=== PATIENT | female | born 1985 | race Caucasian/White ===

== ENCOUNTER 2017-11-14 17:24 | Emergency (ER) | payer OTHER ==
--- NOTE | 2017-11-14 17:44 | PDOC ---
Rapid Medical Evaluation Time Seen by Provider: 11/14/17 17:40 Medical Evaluation: Allergies Allergy/AdvReac Type Severity Reaction Status Date / Time No Known Allergies Allergy Verified 11/10/15 17:06 11/14/17 17:40 Pt presents to the ED: 24 weeks , Dr. ramesh felix, went to the bathroom and had gush of fluid, feels ball between legs Pt on brief exam: vss Pt ordered for : go directly to l &D Pt to proceed to the ED
[2017-11-14 17:50] VITALS: TEMP 98.4; BMI 23.1
[2017-11-14 18:08] VITALS: BP 108/68; PULSE 87
== END 2017-11-14 18:40 | disposition home or self-care (01) ==
LOC: JER 17:24
DX: O26.892 Other specified pregnancy related conditions, second trimester (principal); N89.8 Other specified noninflammatory disorders of vagina; Z3A.24 24 weeks gestation of pregnancy
CPT/HCPCS: 99281-25

== ENCOUNTER 2018-03-11 17:02 | Inpatient (IN) | payer BC ==
[~2018-03-11 17:02] MED LIST: ELECTROLYTE-148 SOLN 500 ML IV SCH
[2018-03-11] MEDS ORDERED: ELECTROLYTE-148 SOLN 500 ML IV SCH (17:45)
[2018-03-11 17:49] VITALS: BMI 26.9
[2018-03-11] MEDS ORDERED: CITRIC ACID/SODIUM CITRATE 30 ML UNIT-DOSE CUP PO ONE (17:59)
--- NOTE | 2018-03-11 18:05 | HP ---
Past Medical History - Primary Care Physician PCP:: Nehemias Caicedo - Admission Chief Complaint: 38 weeks, labor, previous c/s , request of repeat c/s History of Present Illness: 32 yo f edc by [facility] 03/18/18 38 weeks, c/o of contraction since 3 pm today, no rom, has bloody show , cx closed 75 vx -3 mi, fhr cat i , regular contraction, disussed , declined , risks of c/s discussed History Source: Patient Limitations to Obtaining History: Language Barrier - Past Medical History ...: 3 ...Para: 1 ...Term: 1 ...: 0 ...Spon : 0 ...Induced : 1 ...Multiple Gestation: 0 ...EDC by [facility]: 03/13/18 Infectious Disease: Yes: STD's (hx of HSV, 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) - Past Surgical History Past Surgical History: Yes: Hx Myomectomy: No Hx Transabdominal Cerclage: No - Smoking History Smoking history: Never smoked Have you smoked in the past 12 months: No - Alcohol/Substance Use Hx Alcohol Use: No - Social History Usual Living Arrangement: Yes: With Spouse History of Recent Travel: No Home Medications - Allergies Allergies/Adverse Reactions: Allergies Allergy/AdvReac Type Severity Reaction Status Date / Time No Known Allergies Allergy Verified 03/11/18 17:11 - Home Medications Home Medications: Ambulatory Orders Vit 108/Iron/Folic AC [ One Tablet] 1 tab PO DAILY 11/14/17 Valacyclovir HCl [Valtrex] 500 mg PO DAILY 03/11/18 Review of Systems - Review of Systems Constitutional: reports: No Symptoms Eyes: reports: No Symptoms HENT: reports: No Symptoms Neck: reports: No Symptoms Cardiovascular: reports: No Symptoms Genitourinary: reports: No Symptoms Breasts: reports: No Symptoms Reported Integumentary: reports: No Symptoms Neurological: reports: No Symptoms Endocrine: reports: No Symptoms Psychiatric: reports: No Symptoms Physical Exam - Maternity Vital Signs: Vital Signs Temperature 98.6 F 03/11/18 17:38 Pulse Rate 98 H 03/11/18 17:38 Respiratory Rate 20 03/11/18 17:38 Blood Pressure 128/71 03/11/18 17:38 O2 Sat by Pulse Oximetry (%) Constitutional: Yes: Well Nourished, No Distress, Calm Eyes: Yes: WNL, Conjunctiva Clear, EOM Intact HENT: Yes: WNL, Atraumatic, Normocephalic Neck: Yes: WNL, Supple, Trachea Midline Cardiovascular: Yes: WNL, Regular Rate and Rhythm Breast(s): Yes: WNL - Abdominal Exam/OB Regularity: Regular Intensity: Mod/Strong Monitor Mode: External Heart Rate Location: [facility] Category: I Accelerations: Uniform Decelerations: None - Vaginal Exam/OB Vaginal Bleediing: Bloody Show Speculum Exam: No Dilatation (cm): closed Effacement (%): 75 Amniotic Membrane Status: Intact Presentation: Vertex/Position Station: -2 - Physical Exam Musculoskeletal: Yes: WNL Extremities: Yes: WNL Edema: Yes Edema: LLE: Trace, RLE: Trace Deep Tendon Reflex Grade: Normal +2 Psychiatric: Yes: WNL Hemorrhage Risk Assessment - Risk Factors Medium Risk Factors: Yes: None High Risk Factors: Yes: None Risk Score: 1 Risk Level: Medium Risk Problem List - Problems (1) with 38 completed weeks gestation Code(s): Z3A.38 - 38 WEEKS GESTATION OF (2) Previous section complicating Code(s): O34.219 - MATERNAL CARE FOR UNSP TYPE SCAR FROM PREVIOUS DEL (3) First stage of labor established Code(s): VMV9798 - Assessment/Plan plan repeat c/s, rba discussed
[2018-03-11 18:11] LABS: BASO % 0.4 % (0-2.0); EOS % 0.4 % (0-4.5); HEMOGLOBIN 10.4 GM/dL (10.7-15.3); LYMPH % 13.9 % (8-40); MCH 26.9 pg (25.7-33.7); MCHC 32.6 g/dl (32.0-36.0); MEAN CELL VOLUME 82.5 fl (80-96); MEAN PLT VOLUME 10.2 fl (7.5-11.1); MONO % 8.8 % (3.8-10.2); NEUT % 76.5 % (42.8-82.8); PLATELET COUNT 201 K/MM3 (134-434); RBC 3.87 M/mm3 (3.60-5.2); RDW 15.5 % (11.6-15.6)
[2018-03-11 18:23] LABS: INR 0.88 (0.82-1.09)
[2018-03-11 18:26] LABS: ACTIVATED PTT 23.4 SECONDS (26.9-34.4)
[2018-03-11 18:36] LABS: ANION GAP 9 (8-16); BLOOD UREA NITROGEN 10 mg/dL (7-18); CALCIUM 8.5 mg/dL (8.5-10.1); CHLORIDE 106 mmol/L (98-107); CO2 24 mmol/L (21-32); CREATININE 0.5 mg/dL (0.55-1.02); GLUCOSE,RANDOM 78 mg/dL (74-106); POTASSIUM 3.8 mmol/L (3.5-5.1); SODIUM 139 mmol/L (136-145)
[2018-03-11] MEDS ORDERED: ELECTROLYTE-148 SOLN 1,000 ML IV SCH (19:45)
[2018-03-11] MEDS ORDERED: ONDANSETRON 4 MG/2 ML VIAL IVPUSH PRN (19:52)
[2018-03-11] MEDS ORDERED: IBUPROFEN 800 MG/8 ML IJ IVPB PRN ×2 (19:53→20:03)
[2018-03-11] MEDS ORDERED: morphine SULFATE/Preservative Free 0.5 MG/ML (1cc Syringe) ONE (20:00)
[2018-03-11] MEDS ORDERED: morphine SULFATE/Preservative Free 0.5 MG/ML (1cc Syringe) EP ONE (20:00)
[2018-03-11] MEDS ORDERED: BUPIVACAINE 0.75% IN DEXTROSE/PF 2ML AMPULE NR ONE (20:00)
[2018-03-11] MEDS ORDERED: ceFAZolin SODIUM 1 GM VIAL ONE (20:01)
[2018-03-11] MEDS ORDERED: BENZOCAINE 20% 57 GM BOTTLE TP PRN (20:03)
[2018-03-11] MEDS ORDERED: BENZOCAINE 28 GM HEMORRHOIDAL OINTMENT PR PRN (20:03)
[2018-03-11] MEDS ORDERED: diphenhydrAMINE HCL 25 MG CAPSULE (FP) PO PRN (20:03)
[2018-03-11] MEDS ORDERED: METHYLERGONOVINE MALEATE 0.2 MG/1 ML AMP IM PRN (20:03)
[2018-03-11] MEDS ORDERED: oxyCODONE HCL 5 MG TABLET PO PRN (20:03)
[2018-03-11] MEDS ORDERED: WITCH HAZEL 50% (TUCKS) 40 PAD/JAR PAD TP PRN (20:03)
[2018-03-11] MEDS ORDERED: OXYTOCIN 20 UNITS in 0.9% NS 20 UNIT/1,000 ML INFUS.BAG IV SCH (20:15)
[2018-03-11] MEDS ORDERED: DEXTROSE 5%-LACTATED RINGERS 1,000 ML IV SCH (20:15)
[2018-03-11] MEDS ORDERED: OXYTOCIN 10 UNITS/ML VIAL ONE (20:24)
[2018-03-11] MEDS ORDERED: OXYTOCIN 20 UNITS in 0.9% NS 20 UNIT/1,000 ML INFUS.BAG IV ONE (21:54)
[2018-03-12] MEDS ORDERED: CEFAZOLIN 1 GM in DEXTROSE 5%-WATER - 50 ML IVPB SCH (02:00)
[2018-03-12] MEDS: CEFAZOLIN 1 GM/D5W 1 GM/50 ML BAG IVPB SCH ×3 (02:10→17:03)
[2018-03-12] MEDS: OXYTOCIN 20 UNITS in 0.9% NS 20 UNIT/1,000 ML INFUS.BAG IV SCH ×2 (05:57→14:00)
--- NOTE | 2018-03-12 08:11 | PN ---
Progress Note (short form) - Note Progress Note: Anesthesia post op/pain S:alert aND AWAKE comfortable O: Vital Signs Temperature 98.7 F 03/12/18 06:00 Pulse Rate 86 03/12/18 06:00 Respiratory Rate 18 03/12/18 06:00 Blood Pressure 104/58 03/12/18 06:00 O2 Sat by Pulse Oximetry (%) 100 03/11/18 21:45 CBC, BMP 03/11/18 17:58 A/P: Current Active Problems Current Active Problems First stage of labor established (Acute) with 38 completed weeks gestation (Acute) Previous section complicating (Acute) s/p c section Doing well post op Bonifacio Glynn MD
[2018-03-12 08:19] LABS: BASO % 0.2 % (0-2.0); EOS % 0.1 % (0-4.5); HEMATOCRIT 29.2 % (32.4-45.2); HEMOGLOBIN 9.5 GM/dL (10.7-15.3); LYMPH % 9.1 % (8-40); MCH 26.9 pg (25.7-33.7); MCHC 32.7 g/dl (32.0-36.0); MEAN CELL VOLUME 82.2 fl (80-96); MONO % 6.6 % (3.8-10.2); PLATELET COUNT 167 K/MM3 (134-434); RBC 3.55 M/mm3 (3.60-5.2); RDW 15.3 % (11.6-15.6); WHITE BLOOD COUNT 18.7 K/mm3 (4.0-10.0)
[2018-03-12] MEDS: ENOXAPARIN NA (PORCINE) 40 MG/0.4 ML DISP.SYRIN SQ SCH (09:14)
[2018-03-12] MEDS: oxyCODONE HCL 5 MG TABLET PO PRN ×2 (15:12→22:07)
[2018-03-12] MEDS: IBUPROFEN 600 MG TABLET (FP) PO PRN ×2 (15:13→22:07)
[2018-03-12] MEDS: SIMETHICONE 80 MG TAB.CHEW (FP) PO PRN ×2 (15:14→22:07)
--- NOTE | 2018-03-12 17:07 | PN ---
Progress Note (short form) - Note Progress Note: pod 1, s/p c/s doing well CBC, BMP 03/12/18 07:30 03/11/18 17:58 abdomen soft, no distension, no cva incision dry, clean no calf tenderness plan ambulate , advnce diet pain management Problem List - Problems (1) with 38 completed weeks gestation Code(s): Z3A.38 - 38 WEEKS GESTATION OF (2) Previous section complicating Code(s): O34.219 - MATERNAL CARE FOR UNSP TYPE SCAR FROM PREVIOUS DEL (3) First stage of labor established Code(s): UCE0375 -
[2018-03-12] MEDS ORDERED: BISACODYL 10 MG SUPP.RECT RC PRN (20:03)
[2018-03-12] MEDS: SENNOSIDES/DOCUSATE COMBO (SENNA PLUS) TABLET (UD) PO PRN (20:56)
[2018-03-13] MEDS: SIMETHICONE 80 MG TAB.CHEW (FP) PO PRN ×3 (06:28→18:50)
[2018-03-13] MEDS: IBUPROFEN 600 MG TABLET (FP) PO PRN ×3 (06:28→18:49)
[2018-03-13] MEDS: oxyCODONE HCL 5 MG TABLET PO PRN ×3 (06:28→18:49)
[2018-03-13] MEDS: ENOXAPARIN NA (PORCINE) 40 MG/0.4 ML DISP.SYRIN SQ SCH (09:05)
--- NOTE | 2018-03-13 09:58 | PN ---
Post Progress Note - Subjective Subjective: 32 yo Para 2 status post delivery, seen and evaluated. Doing well. Post Day: 2 Type of Delivery: Repeat C/S Vital Signs: Vital Signs Temperature 97.9 F 03/13/18 07:30 Pulse Rate 79 03/13/18 07:30 Respiratory Rate 20 03/13/18 07:30 Blood Pressure 106/60 03/13/18 07:30 O2 Sat by Pulse Oximetry (%) 100 03/11/18 21:45 Breast Exam: Yes: Soft Uterus: Yes: Fundus Firm Incision: Yes: [place] intact Abdomen/GI: Yes: Abdomen soft, Tolerating PO Lochia: Yes: Rubra Lochia, amount: Small Extremities: Yes: Calves non-tender Activity: Ambulating - Labs Labs: CBC WBC 18.7 K/mm3 (4.0-10.0) H D 03/12/18 07:30 RBC 3.55 M/mm3 (3.60-5.2) L 03/12/18 07:30 Hgb 9.5 GM/dL (10.7-15.3) L 03/12/18 07:30 Hct 29.2 % (32.4-45.2) L 03/12/18 07:30 MCV 82.2 fl (80-96) 03/12/18 07:30 MCH 26.9 pg (25.7-33.7) 03/12/18 07:30 MCHC 32.7 g/dl (32.0-36.0) 03/12/18 07:30 RDW 15.3 % (11.6-15.6) 03/12/18 07:30 Plt Count 167 K/MM3 (134-434) 03/12/18 07:30 MPV 10.0 fl (7.5-11.1) 03/12/18 07:30 Neutrophils % 84.0 % (42.8-82.8) H 03/12/18 07:30 Lymphocytes % 9.1 % (8-40) D 03/12/18 07:30 Monocytes % 6.6 % (3.8-10.2) 03/12/18 07:30 Eosinophils % 0.1 % (0-4.5) 03/12/18 07:30 Basophils % 0.2 % (0-2.0) 03/12/18 07:30 Problem List - Problems (1) Status post repeat low transverse section Code(s): Z98.891 - HISTORY OF UTERINE SCAR FROM PREVIOUS SURGERY Assessment/Plan Status post repeat Low Transverse Stable Ambulation Analgesia as needed Continue routine post op care
--- NOTE | 2018-03-13 12:41 | OP ---
DATE OF OPERATION: 03/11/2018 PREOPERATIVE DIAGNOSIS: 38 weeks, previous section, labor, request repeat section. POSTOPERATIVE DIAGNOSIS: 38 weeks, previous section, labor, request repeat section. PROCEDURE: Repeat low segment transverse section. SURGEON: Nehemias Caicedo MD GAS [employer]URBINE ASSEMBLER: SONALI Mejia ANESTHESIA: Spinal. ANESTHESIOLOGIST: Dr. Ovalle ESTIMATED BLOOD LOSS: 500 mL. DESCRIPTION OF PROCEDURE: The patient was taken to the operating room under adequate spinal anesthesia. Abdomen and perineum was prepped and draped. Pfannenstiel abdominal skin incision was made. Abdominal wall was cut layer by layer until the peritoneum was exposed and incised. Upon entering the abdominal cavity, lower uterine segment was identified, and uterovesical fold of peritoneum established. Bladder was pushed down. A low transverse uterine incision was made. Amniotic sac was entered. Clear fluid. Head delivered from right occiput transverse position. Nasopharynx was suctioned. Live baby was delivered without any difficulty. Placenta was delivered manually. Uterine cavity was cleaned of all remaining tissue. Uterine incision was closed in 2 layers, the first layer with 0 Biosyn continuous suture, the second layer with 0 Biosyn imbricating the first layer. Bladder flap was closed with 0 Biosyn continuous suture. Both tubes and ovaries were checked and normal. No active bleeding was seen. All of the lap pad, sponge, and instrument counts were correct. Peritoneum was closed with 0 Biosyn continuous suture. Muscles were brought together with interrupted sutures of 0 Biosyn. Fascia was closed with 0 Biosyn continuous suture, subcutaneous fat interrupted suture of 0 Biosyn, and the skin was closed with martita. The patient tolerated the procedure well and left the OR in good condition. Nayan [id number]
[2018-03-13 21:00] VITALS: TEMP 98
[2018-03-14] MEDS: SIMETHICONE 80 MG TAB.CHEW (FP) PO PRN ×2 (00:25→07:56)
[2018-03-14] MEDS: SENNOSIDES/DOCUSATE COMBO (SENNA PLUS) TABLET (UD) PO PRN (00:25)
[2018-03-14] MEDS: IBUPROFEN 600 MG TABLET (FP) PO PRN (07:56)
[2018-03-14 08:59] LABS: BASO % 0.4 % (0-2.0); EOS % 2.4 % (0-4.5); HEMATOCRIT 26.7 % (32.4-45.2); HEMOGLOBIN 8.7 GM/dL (10.7-15.3); LYMPH % 18.4 % (8-40); MCHC 32.6 g/dl (32.0-36.0); MEAN CELL VOLUME 82.8 fl (80-96); MEAN PLT VOLUME 9.6 fl (7.5-11.1); MONO % 8.4 % (3.8-10.2); NEUT % 70.4 % (42.8-82.8); PLATELET COUNT 199 K/MM3 (134-434); RBC 3.22 M/mm3 (3.60-5.2); RDW 15.7 % (11.6-15.6); WHITE BLOOD COUNT 9.2 K/mm3 (4.0-10.0)
[2018-03-14 09:07] VITALS: BP 111/67; PULSE 74
[2018-03-14] MEDS: ENOXAPARIN NA (PORCINE) 40 MG/0.4 ML DISP.SYRIN SQ SCH (10:10)
--- NOTE | 2018-03-14 11:25 | PN ---
Post Progress Note - Subjective Subjective: no c/o dizziness no c/o pain pt requests for discharge today Post Day: 3 Type of Delivery: Repeat C/S Vital Signs: Vital Signs Temperature 98.0 F 03/14/18 09:07 Pulse Rate 74 03/14/18 09:07 Respiratory Rate 20 03/14/18 09:07 Blood Pressure 111/67 03/14/18 09:07 O2 Sat by Pulse Oximetry (%) 100 03/11/18 21:45 Breast Exam: Yes: Soft, Other (both breast & bottle feeding ). No: Engorged Uterus: Yes: Fundus Firm, Fundus below umbilicus, Non-tender Incision: Yes: [place] intact. No: Redness, Oozing Abdomen/GI: Yes: Abdomen soft, Passing flatus, Tolerating PO (diet ). No: Abdominal Distention, Tender Lochia: Yes: Rubra Lochia, amount: Small Extremities: Yes: Calves non-tender Perineum: Yes: Intact Activity: Ambulating - Labs Labs: CBC WBC 9.2 K/mm3 (4.0-10.0) D 03/14/18 08:00 RBC 3.22 M/mm3 (3.60-5.2) L 03/14/18 08:00 Hgb 8.7 GM/dL (10.7-15.3) L 03/14/18 08:00 Hct 26.7 % (32.4-45.2) L 03/14/18 08:00 MCV 82.8 fl (80-96) 03/14/18 08:00 MCH 27.0 pg (25.7-33.7) 03/14/18 08:00 MCHC 32.6 g/dl (32.0-36.0) 03/14/18 08:00 RDW 15.7 % (11.6-15.6) H 03/14/18 08:00 Plt Count 199 K/MM3 (134-434) 03/14/18 08:00 MPV 9.6 fl (7.5-11.1) 03/14/18 08:00 Neutrophils % 70.4 % (42.8-82.8) 03/14/18 08:00 Lymphocytes % 18.4 % (8-40) D 03/14/18 08:00 Monocytes % 8.4 % (3.8-10.2) 03/14/18 08:00 Eosinophils % 2.4 % (0-4.5) D 03/14/18 08:00 Basophils % 0.4 % (0-2.0) 03/14/18 08:00 Assessment/Plan po day rc/s #3, Anemia stable plan anemia counselled discharge today
--- NOTE | 2018-03-20 10:07 | PATH ---
Surgical Pathology Report Patient Name: SHELBY MATT Med. Rec. #: [id number] /Age/Gender: 1985 (Age: 32) / F Account: [id number] [facility]: [facility] OBS/SHIPPING CLERK/ADMIN Taken: 03/11/2018 Received: 03/12/2018 Reported: 03/20/2018 Physicians: Nehemias Caicedo M.D. Specimen(s) Received PLACENTA Clinical History He , 2011, meconium HSV-2, IAB x1, large post rectocele Final Diagnosis PLACENTA, SECTION: 523 g THIRD TRIMESTER PLACENTA WITH TRIVASCULAR UMBILICAL CORD AND UNREMARKABLE PLACENTAL MEMBRANES. Electronically Signed Francisca Daniels M.D. Gross Description The specimen is received fresh labeled placenta and is a 523 gram, 16.5 x 16.0 x 3.0 cm. placenta with attached membranes and umbilical cord. The attached membranes are bales, translucent with focal opacities and insert marginally. The umbilical cord measures 28 cm. in length and averages 1 cm. in diameter. The cord inserts eccentrically, 5.5 cm. to the nearest margin. No true knots or strictures are identified. Cut surface of the umbilical cord reveals 3 vessels. The surface is morton-blue with minimal fibrin deposition and appropriate caliber vessels. The maternal surface is red-brown with focal defects. Sectioning reveals red-brown, spongy parenchyma. No lesions are identified. Die Inspector sections are submitted in three cassettes as follows: 1- membrane rolls and umbilical cord; 2-3- full thickness sections of placenta. /03/17/2018 [facility]03/17/2018
== END 2018-03-14 13:15 | disposition home or self-care (01) | DRG 766 ==
LOC: JDEL 17:02 → JLDR 17:20 → J3W 22:30
PROVIDERS: ADMIT Obstetrics & Gynecology; ATTEND Obstetrics & Gynecology
PROC: 10D00Z1 Extraction of Products of Conception, Low, Open Approach (ICD-10-PCS; principal; 2018-03-11)
DX: O34.211 Maternal care for low transverse scar from previous cesarean delivery (principal); N85.8 Other specified noninflammatory disorders of uterus; O99.02 Anemia complicating childbirth; Z3A.38 38 weeks gestation of pregnancy; Z37.0 Single live birth
CPT/HCPCS: 36415; 80048; 85025; 85610; 85730; 86593; 86850; 86900; 86901; 88307-TC

== ENCOUNTER 2022-12-08 07:04 | Emergency (ER) | payer OTHER, BC ==
[2022-12-08 07:20] VITALS: BP 108/70; PULSE 89; RESP 18; TEMP 97.8; BMI 27.5
[2022-12-08] MEDS ORDERED: ACETAMINOPHEN 500 MG TABLET (FP) PO ONE (08:09)
[2022-12-08] MEDS ORDERED: ACETAMINOPHEN 500 MG TABLET (FP) ONE ×2 (08:15→08:16)
[2022-12-08] MEDS ORDERED: IBUPROFEN 400 MG TABLET (FP) PO ONE ×2 (10:41→11:07)
== END 2022-12-08 11:12 | disposition home or self-care (01) ==
LOC: JER 07:04
DX: M54.2 Cervicalgia (principal); R07.81 Pleurodynia; M54.50 Low back pain, unspecified; V43.52XA Car driver injured in collision with other type car in traffic accident, initial encounter
CPT/HCPCS: 70450-TC; 71046-TC-FY; 72125-TC; 73030-TC-LT-FY; 84703; 99285-25

== ENCOUNTER 2023-07-10 13:00 | Emergency (ER) | payer BC, OTHER ==
[2023-07-10 13:20] VITALS: BP 100/62; PULSE 78; RESP 18; TEMP 99.1; BMI 25.0
[2023-07-10] MEDS ORDERED: TETRACAINE 0.5% OPHTH SOLN 2 ML BOTTLE ONE (14:08)
[2023-07-10] MEDS ORDERED: TETRACAINE 0.5% HCL 0.6ML DROPPER.BOTTLE OD ONE (14:08)
[2023-07-10] MEDS ORDERED: FLUORESCEIN NA 1 EA STRIP OD ONE (14:08)
[2023-07-10] MEDS ORDERED: FLUORESCEIN NA 1 EA STRIP ONE (14:08)
== END 2023-07-10 14:24 | disposition home or self-care (01) ==
LOC: JERFT 13:00
DX: H57.89 Other specified disorders of eye and adnexa (principal); S05.01XA Injury of conjunctiva and corneal abrasion without foreign body, right eye, initial encounter; X58.XXXA Exposure to other specified factors, initial encounter
CPT/HCPCS: 99283-25

== ENCOUNTER 2024-07-09 17:30 | Emergency (ER) | payer BC, OTHER ==
[2024-07-09 17:51] VITALS: BP 107/71; PULSE 77; RESP 18; TEMP 97.7; BMI 25.0
[2024-07-09] MEDS ORDERED: METOCLOPRAMIDE HCL INJECTION 10 MG/2 ML VIAL ONE (18:33)
[2024-07-09] MEDS ORDERED: ACETAMINOPHEN INJECTION 100 ML IVPB ONE (18:33)
[2024-07-09] MEDS: LACTATED RINGERS SOLUTION 1000 ML INFUS.BAG IV ONE (19:04)
[2024-07-09] MEDS: ACETAMINOPHEN 1000 MG/100 ML BAG IVPB ONE (19:04)
[2024-07-09] MEDS: METOCLOPRAMIDE HCL INJECTION 10 MG/2 ML VIAL IVPB ONE (19:05)
[2024-07-09 19:13] LABS: BASO % 0.4 % (0-2.0); EOS % 2.7 % (0-4.5); HEMATOCRIT 40.2 % (32.4-45.2); HEMOGLOBIN 13.7 GM/dL (10.7-15.3); LYMPH % 28.9 % (8-40); MCH 30.2 pg (25.7-33.7); MEAN CELL VOLUME 88.8 fl (80-96); MEAN PLT VOLUME 8.8 fl (7.5-11.1); MONO % 8.6 % (3.8-10.2); NEUT % 59.4 % (42.8-82.8); PLATELET COUNT 251 10^3/uL (134-434); RBC 4.53 M/mm3 (3.60-5.2); RDW 14.2 % (11.6-15.6); WHITE BLOOD COUNT 8.5 K/mm3 (4.0-10.0)
[2024-07-09 19:46] LABS: POTASSIUM 4.9 mmol/L (3.5-5.1)
[2024-07-09 19:49] LABS: ALBUMIN 3.8 g/dl (3.4-5.0); BLOOD UREA NITROGEN 17.7 mg/dL (7-18); CALCIUM 9.1 mg/dL (8.5-10.1)
[2024-07-09 19:53] LABS: BILIRUBIN,TOTAL 0.3 mg/dL (0.2-1); CREATININE 0.7 mg/dL (0.55-1.3); TOT PROT 7.3 g/dl (6.4-8.2)
== END 2024-07-09 20:14 | disposition home or self-care (01) ==
LOC: JERFT 17:30
PROC: 3E033NZ Introduction of Analgesics, Hypnotics, Sedatives into Peripheral Vein, Percutaneous Approach (ICD-10-PCS; principal; 2024-07-09)
PROC: 3E033GC Introduction of Other Therapeutic Substance into Peripheral Vein, Percutaneous Approach (ICD-10-PCS; 2024-07-09)
DX: R51.9 Headache, unspecified (principal); H92.03 Otalgia, bilateral; H53.149 Visual discomfort, unspecified
CPT/HCPCS: 36415; 80053; 84703; 85025; 99284-25; J0131